=== PATIENT | female | born 1960 | race Caucasian/White ===

== ENCOUNTER 2016-12-06 08:35 | Day surgery (SDC) | payer OTHER ==
[~2016-12-06] VITALS: Ht 175.3 cm; Wt 118.4 kg
[~2016-12-06 08:35] MED LIST: ASPIR-LOW81 MG PO; LISINOPRIL-HCT1 EACH PO; LOVASTATIN20 MG PO; METFORMIN HCL500 MG PO; NICOTINE LOZENGE4 MG BUCCAL; VITAMIN B-121000 MCG PO
[2016-12-06] MEDS ORDERED: AMOXICILLIN500 MG PO (08:50)
--- NOTE | 2016-12-06 10:15 | NUR ---
12[facility]06/16 1014 [facility].
--- NOTE | 2016-12-07 14:14 | OR ---
[facility] [address], [place] [address] Signed DATE OF PROCEDURE: 12/06/16 PREOPERATIVE DIAGNOSIS: Screening. POSTOPERATIVE DIAGNOSIS 5 mm polyp at 45 cm. A 4 mm polyps x3 at 10-12 cm. Minimal internal hemorrhoids. PROCEDURE: Colonoscopy without biopsy. ESTIMATED BLOOD LOSS: None. INDICATIONS Otf is a 56-year-old obese female, who was asked to see me for a screening colonoscopy. She has no lower GI complaints and she has no knowledge of her family history since she was adopted. She has never had a previous colonoscopy. In the office, I gave Otf a pamphlet on colonoscopy and we reviewed the nature of the test along with the risks including, but not limited to gas bloating, crampy, abdominal pain, bleeding perforation requiring surgery, and missed diagnosis. We also discussed the need for IV conscious sedation. She had expressed understanding wished to proceed. PROCEDURE NOTE Otf was taken into our endoscopy suite and placed in the left lateral decubitus position. She was given IV sedation with 8 mg of Versed and 150 mcg of Fentanyl. A digital rectal exam was performed and this was unremarkable. The adult colonoscope was introduced and advanced under direct visualization of camera without difficulty. Her prep was good. There was a couple areas of liquid particulate stool matter we could not quite irrigated and suctioned out completely. The scope was slowly withdrawn. We saw a sessile polyp at 45 cm, which we removed with a hot biopsy forceps. We saw just a cluster of polyps in the mid rectum. We removed those with a hot biopsy forceps as well. Upon retroflexion of scope, she does have minimal internal hemorrhoids. After this, the gas was suctioned out and the colonoscope removed. Otf tolerated the procedure quite well. RECOMMENDATIONS I will see Otf back in my office in 7-14 days to review her colonoscopy results. Also, she has a ventral incisional hernia and a CT scan that needs to be reviewed. Electronically Signed By: SEVERIANO WARD MD 12/07/16 1414 PATIENT NAME: OTF CORONA OPERATIVE REPORT DATE OF : 64 PHYSICIAN: SEVERIANO WARD MD REPORT #: [id number] REPORT IS CONFIDENTIAL AND NOT TO BE RELEASED WITHOUT AUTHORIZATION [address], [place] [address] Signed MD VIOLA Casanova/Modl /[id number] cc: Dr. Yariel Stahl Electronically Signed By: SEVERIANO WARD MD 12/07/16 1414 PATIENT NAME: OTF CORONA OPERATIVE REPORT DATE OF : 64 PHYSICIAN: SEVERIANO WARD MD REPORT #: [id number] REPORT IS CONFIDENTIAL AND NOT TO BE RELEASED WITHOUT AUTHORIZATION
== END 2016-12-06 10:37 | disposition home or self-care (01) ==
LOC: DS 08:35 → OPS 08:35 → DS 09:45 → OPS 09:45
PROVIDERS: Colon & Rectal Surgery
PROC: 0DBE8ZX Excision of Large Intestine, Via Natural or Artificial Opening Endoscopic, Diagnostic (ICD-10-PCS; 2016-12-06)
PROC: 0DBP8ZX Excision of Rectum, Via Natural or Artificial Opening Endoscopic, Diagnostic (ICD-10-PCS; principal; 2016-12-06 09:45)
DX: Z12.11 Encounter for screening for malignant neoplasm of colon (principal); K62.1 Rectal polyp; K63.5 Polyp of colon; K64.8 Other hemorrhoids; I10 Essential (primary) hypertension; E78.5 Hyperlipidemia, unspecified; E11.9 Type 2 diabetes mellitus without complications; Z86.73 Personal history of transient ischemic attack (TIA), and cerebral infarction without residual deficits; F17.210 Nicotine dependence, cigarettes, uncomplicated; Z98.41 Cataract extraction status, right eye; Z98.42 Cataract extraction status, left eye; Z90.710 Acquired absence of both cervix and uterus; Z98.51 Tubal ligation status; Z79.899 Other long term (current) drug therapy
CPT/HCPCS: 99152; 99153; J2250; J3010; J7120

== ENCOUNTER 2016-12-26 14:09 | Observation (INO) | payer OTHER ==
[~2016-12-26] VITALS: Ht 175.3 cm; Wt 117.9 kg
--- OUTSIDE RECORDS SUMMARY | ~2016-12-26 | XMS ---
Demographics + + + | Address | [address] | | | [place] [address] | + + + | Preferred Language | Unknown | + + + | Marital Status | Unknown | + + + | Hinduism Affiliation | Unknown | + + + | Race | Unknown | + + + | Ethnic Group | Unknown | + + + Author + + + | Author | [facility] | + + + | Organization | [facility] | + + + | Address | [address] | | | [place] [address] | + + + | Phone | | + + + Care Team Providers + + + + | Care Physical Therapy Supervisor Name | Role | Phone | + + + + Unavailable | Unavailable | + + + + PROBLEMS +---------+ + + +--------+ + + | Type | Condition | ICD9-CM | [id number] | Onset | Condition | SNOMED | | | | Code | Code | Dates | Status | Code | +---------+ + + +--------+ + + | Problem | Screening | | Z12.11 | | Active | 296746215 | | | for colon | | | | | | | | cancer | | | | | | +---------+ + + +--------+ + + | Problem | Tobacco | F17.200 | | | Active | 83001102 | | | dependence | | | | | | +---------+ + + +--------+ + + | Problem | Screening | Z12.39 | | | Active | 60595965 | | | breast | | | | | | | | examinatio | | | | | | | | n | | | | | | +---------+ + + +--------+ + + | Problem | Sleep | G47.30 | | | Active | 87936983 | | | apnea | | | | | | +---------+ + + +--------+ + + | Problem | History of | Z86.73 | | | Active | 250674663 | | | stroke | | | | | | +---------+ + + +--------+ + + | Problem | Hyperlipid | | E78.5 | | Active | 21281835 | | | emia | | | | | | +---------+ + + +--------+ + + | Problem | Vitamin | E53.8 | | | Active | 351344624 | | | B12 | | | | | | | | deficiency | | | | | | +---------+ + + +--------+ + + | Problem | Essential | | I10 | | Active | 81137719 | | | hypertensi | | | | | | | | on | | | | | | +---------+ + + +--------+ + + | Problem | Type 2 | E11.9 | | | Active | 90330798 | | | diabetes | | | | | | | | mellitus | | | | | | +---------+ + + +--------+ + + | Problem | Carotid | | I77.9 | | Active | 858320841 | | | artery | | | | | | | | disease | | | | | | +---------+ + + +--------+ + + | Problem | Encounter | | Z13.21 | | Active | 366388543 | | | for | | | | | | | | screening | | | | | | | | for | | | | | | | | nutritiona | | | | | | | | l disorder | | | | | | +---------+ + + +--------+ + + | Problem | Tinea | B35.3 | | | Active | 3010376 | | | pedis of | | | | | | | | both feet | | | | | | +---------+ + + +--------+ + + | Problem | Screening | Z13.29 | | | Active | 350291464 | | | for | | | | | | | | hypothyroi | | | | | | | | dism | | | | | | +---------+ + + +--------+ + + | Problem | Women's | Z01.419 | | | Active | 7715329929 | | | annual | | | | | 50081 | | | routine | | | | | | | | gynecologi | | | | | | | | singh | | | | | | | | examinatio | | | | | | | | n | | | | | | +---------+ + + +--------+ + + | Problem | Screening | Z13.5 | | | Active | | | | for | | | | | | | | diabetic | | | | | | | | retinopath | | | | | | | | y | | | | | | +---------+ + + +--------+ + + ALLERGIES Unknown Allergies SOCIAL HISTORY No smoking Hx information available PLAN OF CARE VITAL SIGNS MEDICATIONS Unknown Medications RESULTS No Results PROCEDURES No Known procedures IMMUNIZATIONS No Known Immunizations"
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
--- OUTSIDE RECORDS SUMMARY | ~2016-12-26 | XMS ---
Demographics + + + | Address | [address] | | | [place] [address] | + + + | Preferred Language | Unknown | + + + | Marital Status | Unknown | + + + | Judaism Affiliation | Unknown | + + + | Race | Unknown | + + + | Ethnic Group | Unknown | + + + Author + + + | Author | [facility] | + + + | Organization | [facility] | + + + | Address | [address] | | | [place] [address] | + + + | Phone | | + + + Care Team Providers + + + + | Care Tongue Trimmer Name | Role | Phone | + + + + Unavailable | Unavailable | + + + + PROBLEMS +---------+ + + +--------+ + + | Type | Condition | ICD9-CM | [id number] | Onset | Condition | SNOMED | | | | Code | Code | Dates | Status | Code | +---------+ + + +--------+ + + | Problem | Screening | | Z12.11 | | Active | [id number] | | | for colon | | | | | | | | cancer | | | | | | +---------+ + + +--------+ + + | Problem | Tobacco | F17.200 | | | Active | 63197224 | | | dependence | | | | | | +---------+ + + +--------+ + + | Problem | Screening | Z12.39 | | | Active | 60711356 | | | breast | | | | | | | | examinatio | | | | | | | | n | | | | | | +---------+ + + +--------+ + + | Problem | Sleep | G47.30 | | | Active | 47135845 | | | apnea | | | | | | +---------+ + + +--------+ + + | Problem | History of | Z86.73 | | | Active | 926383280 | | | stroke | | | | | | +---------+ + + +--------+ + + | Problem | Hyperlipid | | E78.5 | | Active | 05655867 | | | emia | | | | | | +---------+ + + +--------+ + + | Problem | Vitamin | E53.8 | | | Active | 243753938 | | | B12 | | | | | | | | deficiency | | | | | | +---------+ + + +--------+ + + | Problem | Essential | | I10 | | Active | 70194286 | | | hypertensi | | | | | | | | on | | | | | | +---------+ + + +--------+ + + | Problem | Type 2 | E11.9 | | | Active | 69996097 | | | diabetes | | | | | | | | mellitus | | | | | | +---------+ + + +--------+ + + | Problem | Carotid | | I77.9 | | Active | 538111709 | | | artery | | | | | | | | disease | | | | | | +---------+ + + +--------+ + + | Problem | Encounter | | Z13.21 | | Active | 733491145 | | | for | | | [...] | B35.3 | | | Active | 6016602 | | | pedis of | | | | | | | | both feet | | | | | | +---------+ + + +--------+ + + | Problem | Screening | Z13.29 | | | Active | 849576113 | | | for | | | | | | | | hypothyroi | | | | | | | | dism | | | | | | +---------+ + + +--------+ + + | Problem | Women's | Z01.419 | | | Active | | | | annual | | | | | | | | routine | | | [...] +---------+ + + +--------+ + + ALLERGIES + + + + +---------+ | Substance | Reaction | Event Type | Date | Status | + + + + +---------+ | Zoe | Unknown | Non Drug | Sep, | Unknown | | | | Allergy | | | + + + + +---------+ SOCIAL HISTORY No smoking Hx information available PLAN OF CARE + +---------+ | Activity | Details | + +---------+ +---+ | | +---+ + + + | Follow Up | December of 2016 Reason:null | + + + VITAL SIGNS + + + + | Height | 68 in | 2016-09-10 | + + + + | Weight | 249.8 lbs | 2016-09-10 | + + + + | BMI | 37.98 kg/m2 | 2016-09-10 | + + + + | Temperature | 97.9 degrees Fahrenheit | 2016-09-10 | + + + + | Heart Rate | 91 /min | 2016-09-10 | + + + + | Blood pressure systolic | 118 mm Hg | 2016-09-10 | + + + + | Blood pressure diastolic | 77 mm Hg | 2016-09-10 | + + + + MEDICATIONS + [...] | Orally | 1 tablet | | 19 Jun, | | | Active | | atin | Once a | | | 2016 | | | | | Calcium | [...] | | | | Active | | [place] | Once a | | | | [...] + + +--------+ RESULTS No Results PROCEDURES + + + + + | Procedure | Date Ordered | Related Diagnosis | Body Site | + + + + + | Est Level IV | September 10, 2016 | | | | Extended | | | | + + + + + IMMUNIZATIONS No Known Immunizations"
[~2016-12-26 14:09] MED LIST changes: +AMOXICILLIN500 MG PO
[2017-01-10] MEDS ORDERED: LIPITOR40 MG PO (09:05)
[2017-01-10] MEDS ORDERED: METFORMIN HCL1000 MG PO (09:05)
[2017-01-20] MEDS ORDERED: CHANTIX0.5 MG PO (07:15)
--- NOTE | 2017-01-20 10:34 | NUR ---
01/20/17 Portia4 Pilar [place] 1028-PATIENT ARRIVED TO PACU ON 6L MASK O2 SAT 98% PATIENT AWAKE DENIES PAIN OR NAUSEA. DRESSING CDI ABDOMINAL BINDER IN PLACE ALONG WITH KING CATHETER.
--- NOTE | 2017-01-20 14:35 | NUR ---
PT SEEMED RELAXED, HAS HAD THIS SURGERY BEFORE. VERY PLEASANT, REQUESTED PRAYER. WILL FOLLOW NEEDED
--- NOTE | 2017-01-20 17:38 | NUR ---
PT ARRIVED AT 1130 FROM SURGERY. PT REPORTED NO PAIN, NO NAUSEA AT THAT TIME. PT ON 3L O2 VIA NC WHILE SLEEPING, WEANED TO ROOM AIR. HOME CPAP WHILE SLEEPING. ABD BINDER IN PLACE, SURGICAL WOUND COVERED WITH ABD PADS AND TAPE. SCANT AMT OF SHADOWING ON ABD PAD. PT REPORTED 2 EPISODES OF SEVERE "CRAMPY" PAIN IN UPPER RIGHT QUADRENT. PT REPORTS PASSED IN 2-5 MINUTES, PRN PAIN MEDS FOR GENERAL PAIN. ONE EPISODE OF TRANSIENT NAUSEA, DECLINED PRN MEDS. KING IN PLACE, DRAINING WELL. SCD IN PLACE.
--- NOTE | 2017-01-20 19:30 | NUR ---
RECIEVED REPORT FROM DAY SHIFT NURSE. PT SLEEPING EVIDENCE BY SNORING. IVF INFUSING W/O DIFFICULTY. CALL VAZQUEZ IN REACH.
--- NOTE | 2017-01-20 20:35 | NUR ---
PT RESTING IN BED. EDUCATED PT ON USE OF IS. PT DEMONSTRATED. CONT. PULSE OX IN PLACE. PT AT 93% RA. MINIMAL SHADOWING NOTED ON ABD PAD. BINDER IN PLACE. SCDS IN PLACE. PT DENIES NEEDS. CALL VAZQUEZ IN REACH.
--- NOTE | 2017-01-20 21:41 | NUR ---
ROUNDED CHARGE. PATIENT IS RESTING IN BED. PATIENT DENIES ANY COMMENTS, QUESTIONS, OR CONCERNS.
--- NOTE | 2017-01-20 22:26 | NUR ---
PT RESTING IN BED. STATES SHE STILL HAS NOT GOTTEN UP SINCE SURGERY. ATTEMPTED TO SIT PATIENT ON SIDE OF BED. PT STATES SHE IS IN TOO MUCH PAIN. HER PAIN HAS BEEN INTERMITTENT CRAMPING THAT IS SEVERE WHEN IT STARTS. ADMINISTERED 1 TAB NORCO. BS HYPOACTIVE. SMALL AMOUNT OF SHADOWING ON DRESSING. LUNGS CLEAR. TRACE EDEMA BLE. PT DENIES FURTHER NEEDS. CALL VAZQUEZ IN REACH.
--- NOTE | 2017-01-21 00:05 | NUR ---
PT SLEEPING. CALL VAZQUEZ IN REACH.
--- NOTE | 2017-01-21 00:45 | NUR ---
PT RESTING IN BED. O2 AT 88% WHILE SLEEPING. PT REFUSING CPAP AT THIS TIME. APPLIED 1L O2 VIA NC. PT C/O SHARP CRAMPING PAIN 12/13. CRAMPING MOSTLY COMES WITH MOVEMENT. ADMINISTERED NORCO. PT REFUSING TO AMBULATE AT THIS TIME. PT STILL ONLY TAKING IN CLEAR LIQUIDS. C/O "HEARTBURN." SHE DID NOT WANT ME TO CALL THE DOCTOR SO I OFFERED MILK WHICH PT SAYS SHE DRINKS AT HOME TO HELP WITH HEARTBURN. AFTER I ADMINISTERED THE NORCO, PT STATES SHE HAS BEEN FEELING NAUSEOUS AFTER ADMINISTRATION. I GAVE HER AN EMESIS BAG AND TOLD HER TO CALL IF SHE STARTS TO FEEL NAUSEATED. WILL SWITCH TO DILAUDID UNTIL PT ABLE TO EAT FOOD. WATER PITCHER FILLED. SCDS IN PLACE. PT DENIES FURTHER NEEDS.
--- NOTE | 2017-01-21 02:25 | NUR ---
PT'S URINARY OUTPUT HAS BEEN 250CC ALL SHIFT. NOTIFIED MD. OBTAINED ORDER. ATTEMPTED TO STAND PT. PT STARTED CRYING IN PAIN. ADMINISTERED DILAUDID. PT NOW REFUSES TO STAND. PT DENIES FURTHER NEEDS.
--- NOTE | 2017-01-21 04:27 | NUR ---
PT SLEEPING. CALL VAZQUEZ IN REACH.
--- NOTE | 2017-01-21 04:38 | NUR ---
PT SLEEPING. NC IN PLACE. CONT. PULSE OX IN PLACE. CALL VAZQUEZ IN REACH.
--- NOTE | 2017-01-21 06:00 | NUR ---
GEAR AND SPLINE GRINDER OBTAINED VS. BP LOW. NOTIFIED MD. OBTAINED ORDER TO HOLD BP MEDS THIS MORNING.
--- NOTE | 2017-01-21 06:50 | NUR ---
PT RESTING IN BED. EDUCATED HER ON THE IMPORTANCE OF AMBULATING AND SITTING UP STRAIGHT AFTER SURGERY. BASILAR CRACKLES AUSUCLTATED. PT ABLE TO STAND AND PIVOT WITH 2 ASSIST TO CHAIR. PT STATES SHE FEELS VERY WEAK. PT APPEARS TO BE EXTREMELY ANXIOUS BECUASE SHE DOES NOT WANT TO BE IN PAIN. WILL GIVE HIGHER DOSE OF DILAUDID NEXT TIME SHE GETS UP. PT USING INCENTIVE SPIROMETER, ABLE TO REACH 1000ML. HYDRATION OFFERED. CALL VAZQUEZ IN REACH.
--- NOTE | 2017-01-21 07:41 | NUR ---
RECIEVED BEDSIDE REPORT FROM YONAS ARRIOLA. PT AWAKE AND UP IN CHAIR. O2 SAT IN HIGH 80'S, REPLACED O2 AT 2L. PT REPORTS MINOR PAIN.
--- NOTE | 2017-01-21 08:56 | OR ---
[facility] [address], [place] [address] Signed DATE OF OPERATION: 01/20/2017 SURGEON: Severiano Ward MD PREOPERATIVE DIAGNOSIS: Incarcerated periumbilical ventral hernias x2. POSTOPERATIVE DIAGNOSIS: Incarcerated periumbilical ventral hernias x4 (15 cm). PROCEDURE: Primary ventral herniorrhaphy with intraabdominal Ventrio mesh (15.5 x 25.7 cm). ESTIMATED BLOOD LOSS: None. INDICATIONS: Otf is a 56-year-old obese diabetic female who underwent a full hysterectomy in 2013 over in [facility] in [place] for a large uterine fibroid tumor. We can see that her incision traveled several centimeters above the umbilicus. 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 Has to live suitcase in wheelchairs and so forth. She has noticed painful bulging above and below her umbilicus. She said the pain was starting to limit her ability to work. When she lies down, she is not sure if she can push the hernias back inside. She said the pain is at least a 5/10 and often more when she is lifting. She had been asked by her primary care provider to see me with respect to the above. We could feel the incarcerated material on both of those hernias. We sent Otf for a CT scan of the abdomen and pelvis. We found that indeed she has 2 very large hernias and it looks like 2 additional smaller hernias in the midline above the umbilicus. In the office, I had given Otf a booklet on hernias and we looked at that together in detail. We discussed her ventral hernia along with a difference between the primary suture repair and a mesh repair. She understands the expected intraop and postop course. There is risk of surgery including, but not limited to bleeding, infection, scarring, change in contour of the skin, damage to bowel, infection of mesh, requiring removal, recurrent hernias and chronic pain. She had expressed understanding and wished to proceed. PROCEDURE NOTE: I have met with Otf in our preop area. We identified the 2 larger hernias easily, we marked that appropriately. After this Otf was taken into the operating room and placed in the supine position under general endotracheal tube anesthesia. She was given preoperative antibiotics along with subcutaneous heparin. SCDs were utilized. Rincon catheter was inserted with return of clear yellow urine. She was then prepped and draped in the usual sterile fashion. We utilized her previous midline periumbilical incision and we carried that down through the tissues with the help of the cautery. We localized Electronically Signed By: SEVERIANO WARD MD 01/21/17 0856 PATIENT NAME: OTF CORONA OPERATIVE REPORT DATE OF : 64 PHYSICIAN: SEVERIANO WARD MD REPORT #: [id number] REPORT IS CONFIDENTIAL AND NOT TO BE RELEASED WITHOUT AUTHORIZATION [address] [address] Signed the 2 larger hernias first. We excised the hernia sac completely all the way back to the fascial edges. We found 2 additional hernias in the epigastric area and they were smaller just over a centimeter each. The hernia sac for each of the smaller hernias was excised and passed off the field. Given the Panamanian cheese nature of her hernias, then we divided the bridges between the hernias in the full length of that fascial defect then was 15 cm. That gave us excellent access to the abdomen and we took down all the omental adhesions to the anterior abdominal wall. We had a rent down the center of the omentum, so we closed that with a running 2-0 PDS suture. After this, we irrigated out the abdomen and the wound until completely clear. We chose our 15.5 x 25.7 cm Ventrio mesh. We placed that into the abdomen with the long axis directly underneath the center of the fascial defect. We then carefully closed the fascia together in the midline with interrupted #1 Prolene [id number] sutures. In between these, we used smaller 0 Prolene sutures to help bring some of the areas together as well. This gave excellent coverage of her hernia and no undue buckling of the mesh as we passed several sutures through the top layer of the mesh to help hold it in place. On this occasion, we did not use tacks around the perimeter of the mesh. After this, the wound was irrigated out once again. We injected local anesthetic into her abdominal wall. We then closed the dermis with interrupted 3-0 Monocryl sutures. The skin edges were then reapproximated with blaine. Dry gauze and tape were then applied. An abdominal binder was then put in place. Otf was then awakened from anesthesia, extubated in the OR, taken to recovery room in stable condition. Severiano Ward MD ALB/MODL /[id number] cc: Yariel Stahl MD Electronically Signed By: SEVERIANO WARD MD 01/21/17 0856 PATIENT NAME: OTF CORONA OPERATIVE REPORT DATE OF : 64 PHYSICIAN: SEVERIANO WARD MD REPORT #: [id number] REPORT IS CONFIDENTIAL AND NOT TO BE RELEASED WITHOUT AUTHORIZATION [address] [address] Signed Severiano Ward MD Electronically Signed By: SEVERIANO WARD MD 01/21/17 0856 PATIENT NAME: OTF CORONA OPERATIVE REPORT DATE OF : 64 PHYSICIAN: SEVERIANO WARD MD REPORT #: [id number] REPORT IS CONFIDENTIAL AND NOT TO BE RELEASED WITHOUT AUTHORIZATION
--- NOTE | 2017-01-21 10:15 | NUR ---
PT IS STILL UP IN CHAIR, APPEARS COMFORTABLE. IV RUNNING, IV MAG RIDER RUNNING, WILL RUN FLAGYL ONCE COMPLETE. KING DRAINING CLEAR URINE. PT REPORTS PAIN WITH MOVEMENT.
--- NOTE | 2017-01-21 14:06 | NUR ---
PT RESTING IN CHAIR. DENIES PAIN AT THIS TIME. PT STATES SHE IS COMFORTABLE. DOES NOT WANT TO GET INTO BED. PT TOLERATING CLEAR LIQUID WELL.
--- NOTE | 2017-01-21 18:28 | NUR ---
PT SAT IN CHAIR ALL SHIFT. WHEN ASKED ABOUT REPOSITIONING, PT DECLINED. 1MG IV DILAUDID X1. PT HAD O2 AT 1L WHILE SLEEPING IN CHAIR. PT ANXIOUS ABOUT MOVING. BOWEL TONES HYPOACTIVE, ENCOURAGED AMBULATION.
--- NOTE | 2017-01-21 19:25 | NUR ---
RECIEVED REPORT FROM DAY SHIFT NURSE. PT SLEEPING IN CHAIR. IVF INFUSING W/O DIFFICULTY. 1L NC IN PLACE. O2 SAT AT 92%. CALL LIGHT IN REACH.
--- NOTE | 2017-01-21 20:45 | NUR ---
PT RESTING IN CHAIR. C/O BACK PAIN. STATES HER ABD FEELS "OKAY" BUT IT IS PAINFUL WITH MOVEMENT. PLANNING ON PT TRANSFERRING TO BED. PT STATES SHE HAS NOT WALKED TODAY AND HAS BEEN UP IN THE CHAIR ALL DAY. PREMEDICATING WITH 1MG DILAUDID. CALL VAZQUEZ IN REACH.
--- NOTE | 2017-01-21 21:20 | NUR ---
ATTEMPTED TO ASSIST PT TO AN UPRIGHT POSITION IN THE CHAIR IN ORDER TO STAND. PT UNABLE DUE TO PAIN. ADMINISTERED 1 MG OF DILAUDID.
--- NOTE | 2017-01-21 21:45 | NUR ---
PT WAS ABLE TO DO A STAND AND SHUFFLE A FEW STEPS TO BED WITH 2 ASSISTS. PT NOW RESTING IN BED. SCDS IN PLACE. 2 L O2 VIA NC IN PLACE. CONT PULSE OX AT 92%. PT STATES SHES COMFORTABLE. IVF INFUSING W/O DIFFICULTY. PT DENIES FURTHER NEEDS. MEAL TRAY REMOVED WHICH WAS UNTOUCHED.
--- NOTE | 2017-01-21 23:31 | NUR ---
PT SLEEPING. NC IN PLACE AT 2L. CONT. PULSE OX READING 92%. CALL VAZQUEZ IN REACH. IVF INFUSING W/O DIFFICULTY.
--- NOTE | 2017-01-22 00:54 | NUR ---
PT'S O2 AT 89% ON 2L WHILE SLEEPING. APPLIED CPAP MACHINE. PT DENIES NEEDS AT THIS TIME. IVF INFUSING W/O DIFFICULTY. CALL VAZQUEZ IN REACH.
--- NOTE | 2017-01-22 01:27 | NUR ---
PT STATES SHE CAN NO LONGER TOLERATE CPAP. SHE DOES WEAR IT AT HOME BUT SHE STATES SHE HAS GOT "TOO MUCH GOING ON." REPLACED WITH NC. ENCOURAGED PT TO COUGH AND DEEP BREATHE. PT ABLE TO BRING UP SECRETIONS BUT SHE SWALLOWED THEM. PT NOW ON 3L VIA NC, SAT AT 90% WHILE SLEEPING.
--- NOTE | 2017-01-22 03:30 | NUR ---
PT SLEEPING. NC IN PLACE. CALL LIGHT IN REACH.
--- NOTE | 2017-01-22 05:27 | NUR ---
PT CALLED NURSE IN TO ATTEMPT TO SIT ON EDGE OF BED. PT GOT ABOUT HALF WAY THERE AND DECIDED SHE NO LONGER WANTED TO TRY. PT AGREES TO SIT UP IN THE CHAIR THIS MORNING. WILL PREMEDICATE WITH PAIN MEDICATION. SCDS REMOVED PER PT'S REQUEST. CALL VAZQUEZ IN REACH.
--- NOTE | 2017-01-22 06:07 | NUR ---
PREMEDICATED PT WITH DILAUDID BEFORE SHE TRANSFERS TO CHAIR. BLOOD SUGAR OBTAINED. CALL VAZQUEZ IN REACH.
--- NOTE | 2017-01-22 06:30 | NUR ---
TRANSFERRED PT FROM BED TO CHAIR WITH 2 ASSIST. PT DID A LITTLE BETTER THAN YESTERDAY TRANSFERRING. SHE WAS ABLE TO TAKE ABOUT 5 STEPS TO CHAIR. PT UP IN CHAIR, ENCOURAGED USE OF INCENTIVE SPIROMETER. STATES PAIN AT AN ACCEPTABLE LEVEL. CALL VAZQUEZ IN REACH.
--- NOTE | 2017-01-22 07:30 | NUR ---
PATIENT SITTING UP IN CHAIR. ZEINAB ASSISTED PATIENT TO CHAIR AT 0630. PATIENT TOLERATED AFTER PREMEDICATION OF DILAUDID. PATIENT CURRENTLY STATING THAT SHE IS COMFORTABLE. CURRENTLY ON 3 L VIA NC. PLAN OF CARE DISCUSSED WITH PATIENT.
--- NOTE | 2017-01-22 07:46 | NUR ---
BED CHANGE DONE. PATIENT SITTING UP IN CHAIR. PATIENT LUNGS CLEAR IN UPPER LOBES. CRACKLES ASCULTATED IN L LOWER LOBE. PATIENT ASKED TO COUGH AND DEEP BREATH. LUNG SOUNDS CLEARED. RT IN ROOM TO ASSISTED WITH IS. PATIENTS BT HYPOACTIVE. PATIENT REPORTS " ALMOST BEING ABLE TO PASS GAS". ENCOURAGED PATIENT TO EAT CLEAR LIQUID DIET. INFORMED PATIENT THAT I WOULD LIKE HER TO AMBULATE MORE TODAY. PATIENT AGREED TO AMBULATE IN ROOM AFTER MEAL.
--- NOTE | 2017-01-22 07:52 | NUR ---
PATIENT IN CHAIR, DOING WELL. REMINDED PATIENT TO CALL IF SHE NEEDS ANYTHING AT ALL. WHITEBOARD UPDATED, ROOM TIDIED.
--- NOTE | 2017-01-22 08:50 | NUR ---
2 MG DILAUDID GIVEN FOR ANTICIPATION OF AMBULATING IN [place]. PATIENT STATING PAIN MINIMAL UNLESS MOVING.
--- NOTE | 2017-01-22 09:39 | NUR ---
PATIENT AMBULATED TO [place]. NEEDING TWO PERSON ASSIST TO [place]. PATIENT TOUCHED THE HALLWAY WALL THEN ASSISTED BACK TO BED. PATIENT NEEDED 2 PERSON ASSISTANCE. PATIENT NEEDING A LOT OF ENCOURAGMENT TO AMBULATE AND PARTICIPATE WITH ACTIVITY. PATIENT PLACED ON RA FOR ACTIVITY. PATIENT DESATED TO 80'S.ONCE PLACED ON OXYGEN PATIENT SATS WENT TO 90 PERCENT WITH ENCOURAGMENT OF COUGING AND DEEP BREATHING. CONTINUE TO HAVE OXYGEN AT 2L PER NC. PATIENT REFUSED AT THIS TIME TO WEAR HOME CPAP WHILE RESTING IN BED. PATIENT DOING IS AT THIS TIME.
--- NOTE | 2017-01-22 10:20 | NUR ---
PATIENT RESTING IN BED. DR. WARD HAD BEEN IN ROOM. D/C'D DRESSING ABD BINDER IN PLACE. SMALL AMOUNT OF DRAINAGE FROM INCISION. PLACED ABD. ABD INCISION IS WELL APPROXIMATED WITH NO REDDNESS. KING D/C AT THIS TIME. ADVANCED DIET TO FULL LIQUID.
--- NOTE | 2017-01-22 11:26 | NUR ---
PATIENT LAYING IN BED. PATIENT STATING NO NEEDS AT THIS TIME. AGREED TO AMBULATE TO CHAIR AT 1200 FOR LUNCH.
--- NOTE | 2017-01-22 11:56 | NUR ---
PATIENT ASSISTED TO HER CHAIR. TWO PERSON ASSIST TO CHAIR. NEEDING ENCOURAGMENT TO DO MORE ON HER OWN. PATIENT REMAINS ON 2 L PER NC. SATING 90-92 PERCENT ON THE 2 L. PATIENT STATING PAIN OKAY AT THIS TIME. WILL CONTINUE TO MONITOR. CALL LIGHT WITHIN REACH.
--- NOTE | 2017-01-22 12:42 | NUR ---
PATIENT DOING WELL. NURSE IN ROOM
--- NOTE | 2017-01-22 13:12 | NUR ---
assisted patient from chair to br. patient voided. had trouble getting up from chair needing two assist. assisted to bed. patient stating she could use some pain medication. patient stating she would like one tap norco. current rating pain 1/10 with no movement. increased with activity.
--- NOTE | 2017-01-22 15:48 | NUR ---
NURSE IN ROOM
--- NOTE | 2017-01-22 16:00 | NUR ---
patient assisted to the br. patient tolerating ambulating to the br with a one assist. bed bath given once in the br. patient refused to take a shower at this time, but did agree to the bed bath. patient tolerated bed bath well. washed entire body with wipes. hair washed. lotion applied to lower legs and arms. tresa care washed. patient then assisted back to bed. pain medication given per request. 1 mg of dilaudid given. evening medication given. patient blood sugar taken.
--- NOTE | 2017-01-22 17:07 | NUR ---
patient had a good day today. estrada was removed. patient has been voiding well. iv fluids decreased. patient has been tolerating a full liquid diet. getting out of bed with assitance for all meals and to the br. patient given bedbath today. norco given for pain x 1. dilaudid was given x2. patient has abd midline incision open to air. abd inbetween stables and abd binder. incision is well approximated and no reddness present. small amount of bleeding from stables present. active bm. patinet has had no flatus. burping at this time. ambulated in jean x 1
--- NOTE | 2017-01-22 18:00 | NUR ---
PATIENT ASSISTED TO THE BR. TOLERATED 100 PERCENT OF DINNER. PATIENT AMBULATED INTO THE [place] TO THE NURSING STATION AND THEN AMBULATED BACK TO BED. REMAINS ON 2 L PER NC. TWO TABS OF NORCO GIVEN.
--- NOTE | 2017-01-22 18:30 | NUR ---
PATIENT CALLED FOR SOMETHING BEEPING. PLUGGED IN HER IV PUMP THE BATTERY WAS LOW. TURNED OFF THE LIGHTS WELL. PATIENT DID NOT NEED ANYTHING ELSE AT THIS TIME.
--- NOTE | 2017-01-22 19:15 | NUR ---
RECIEVED REPORT FROM SHAE BRANHAM. PT RESTING IN BED. STATES SHE HAD A GREAT DAY. PT PASSING GAS. PT ON 2L O2 VIA NC. PT STATES SHE DOES NOT WANT TO WEAR HER CPAP TONIGHT BECAUSE IT MAKES HER FEEL "CLAUSTROPHOBIC." NO C/O PAIN OR N/V. PT DENIES NEEDS AT THIS TIME. CALL LIGHT IN REACH.
--- NOTE | 2017-01-22 20:00 | NUR ---
PT RESTING IN BED. 2L O2 VIA NC IN PLACE. PT'S O2 ABOUT 92%. CONT PULSE OX IN PLACE. PT'S BS HYPOACTIVE, TYMPANIC SOUNDING IN LUQ. PT DENIES PAIN AT REST. PT REQUESTING TO USE THE BATHROOM. MINIMAL ASSIST REQUIRED WITH AMBULATION. PT VODIED 100CC CLEAR YELLOW URINE. PT BACK TO BED. STATES HER PAIN WAS ABOUT 5/10 WITH AMBULATION. MIDLINE INCISION WNL, NO S/S OF INFECTION. BINDER IN PLACE WITH ABD OVER DAINA. LUNG SOUNDS CLEAR/DIM. ENCOURAGED USE OF INCENTIVE SPIROMETER. PT ABLE TO REACH 1000ML. WATER PITCHER FILLED. PT REQUESTING FOR MILK FOR HEARTBURN, STATES IT HAS BEEN HELPING. PT DENIES FURTHER NEEDS. CALL VAZQUEZ IN REACH.
--- NOTE | 2017-01-22 22:00 | NUR ---
PT REQUESTS TO USE BATHROOM. PT ABLE TO GET OUT OF BED INDEPENDENTLY. VOIDED 300CC, BACK TO BED. PT C/O PAIN WITH MOVEMENT. ADMINISTERED 1 TAB NORCO. PT DENIES FURTHER NEEDS. STILL REFUSING SCDS AT THIS TIME. ENCOURAGED ANKLE PUMPS AND EDUCATED HER ON THE USE OF SCDS AND THE RISK OF BLOOD CLOTS. CALL VAZQUEZ IN REACH.
--- NOTE | 2017-01-22 23:37 | NUR ---
MANAGER ENERGY ASSISTED PT TO THE BATHROOM. PT DENIES NEEDS FROM NURSE. O2 IN PLACE. CALL VAZQUEZ IN REACH.
--- NOTE | 2017-01-23 00:51 | NUR ---
PT SLEEPING EVIDENCE BY SNORING. NC IN PLACE AT 2L, O2 AT 93%, HR IN THE 60S. CALL VAZQUEZ IN REACH.
--- NOTE | 2017-01-23 02:42 | NUR ---
PT SLEEPING EVIDENCE BY SNORING. O2 IN PLACE, SAT AT 85%. INCREASED O2 TO 3L/MIN. SAT BACK UP TO 92%. CALL LIGHT IN REACH.
--- NOTE | 2017-01-23 04:22 | NUR ---
ASSISTED PT TO THE BATHROOM. PT VOIDED AND BACK TO BED. SCDS IN PLACE. PT ON 2L O2 VIA NC AT 93%. PT RATES HER PAIN 3-4/10 WHILE UP WALKING. 1 TAB NORCO ADMINISTERED. I HAD PT EAT A PUDDING BEFORE I ADMINISTERED THE NORCO. LUNGS CLEAR, PT DEMONSTRATED IS, PT ABLE TO REACH 1250ML. HR REG, NO EDEMA, HYPOACTIVE BS. INCISION WELL APPROXIMATED, NO S/S OF INFECTION, NO DRAINAGE. ABD BINDER IN PLACE. PT DID NOT NEED ASSISTANCE GETTING OUT OF BED. PT IS VERY HAPPY WITH HOW FAR SHE HAS PROGRESSED. I TOLD HER THE PLAN FOR THE DAY IS TO AMBULATE IN THE [place] ATLEAST 4 TIMES. PT AGREES. WATER PITCHER FILLED, CALL VAZQUEZ IN REACH.
--- NOTE | 2017-01-23 06:39 | NUR ---
PT UP TO BATHROOM MULTIPLE TIMES DURING THE NIGHT. RATING PAIN 4-5/10 WITH AMBULATION. 1 TAB NORCO PRN PAIN WORKING WELL. PASSED GAS X1 AT START OF SHIFT. HYPO BOWEL SOUNDS. MIDLINE INCISION OPEN TO AIR. PT MAY SHOWER. NO NAUSEA. BP SOFT THIS MORNING. PT ON 2L O2 VIA NC.
--- NOTE | 2017-01-23 06:57 | NUR ---
KARLY BRANHAM AMBULATED PT IN HALLWAY. PT UP IN CHAIR. IVF INFUSING W/O DIFFICULTY. ORDERED PT BREAKFAST. DENIES FURTHER NEEDS. CALL VAZQUEZ IN REACH.
--- NOTE | 2017-01-23 07:42 | NUR ---
BEDSIDE REPORT RECEIVED FROM ZEINAB. PATIENT UP TO CHAIR. REPORT PAIN AT 10. MIDLINE INCISION DRY WITH ALL DAINA IN PLACE. IV SITE PATENT AND FLUID INFUSING WELL. PATIENT DENIES ANY NAUSEA.
--- NOTE | 2017-01-23 08:02 | NUR ---
PATIENT UP TO SHOWER. LINENS CHANGED.
--- NOTE | 2017-01-23 09:55 | NUR ---
PATIENT BACK TO BED. WATCHING TV. CALL BUTTON IN REACH. NO OTHER NEEDS AT THIS TIME.
--- NOTE | 2017-01-23 12:21 | NUR ---
PATIENT WAS UP AND WALKED FROM HER ROOM TO THE NURSES STATION AND BACK. TOLERATED WELL. REPORT NO SOB WHILE AMBULATING. REPORTS MINIMAL PAIN. RESTING IN BED AT THIS TIME EATING LUNCH.
--- NOTE | 2017-01-23 14:21 | NUR ---
PATIENT RESTING IN BED WATCHING TV. FRESH ICE WATER GIVEN. NO OTHER NEEDS AT THIS TIME.
--- NOTE | 2017-01-23 14:57 | NUR ---
PATIENT WAS UP TO BATHROOM TO VOID. WENT FOR WALK AND TOLERATED WELL. PAIN MEDS GIVEN PER PATIENT REQUEST. RESTING IN BED AT THIS TIME.
--- NOTE | 2017-01-23 17:33 | NUR ---
ASSISTED PATIENT TO BATHROOM. BACK TO CHAIR WITH NO DIFFICULTY. DENIES NAUSEA AND PAIN
--- NOTE | 2017-01-23 18:05 | NUR ---
PATIENT SITTING UP IN BED WATCHING TV. CALL BUTTON IN REACH. FRESH ICE WATER GIVEN. NO OTHER NEEDS AT THIS TIME.
--- NOTE | 2017-01-23 18:35 | NUR ---
PATIENT HAD DONE WELL TODAY, HAS BEEN UP AMBULATING IN THE HALLWAY. MIDLINE INCISION WNL, ALL DAINA IN PLACE, NO DRAINAGE. PATIENT REPORTED PASSING FLATUS. HAD SHOWER TODAY. IV SITE PATENT AND FLUID INFUSING AT TKO. MAY DC TOMORROW.
--- NOTE | 2017-01-23 19:15 | NUR ---
RECIEVED REPORT FROM DAY SHIFT NURSE. PT RESTING IN BED. REQESTING TO USE BATHROOM. PT VOIDED. TO CHAIR. REMOVED O2. PT'S O2 AT REST 90-92%. PT DENIES SOB. CONT PULSE OX IN PLACE. WARM BLANKET APPLIED. DENIES FURTHER NEEDS. CALL LIGHT IN REACH.
--- NOTE | 2017-01-23 20:30 | NUR ---
ASSISTED PT TO BATHROOM. PT VOIDED. TO BED. SCDS IN PLACE. NORCO ADMINISTERED FOR PAIN WITH MOVEMENT. BS ACTIVE. REMVOED BINDER PER PT'S REQUEST. INCISION WELL APPROXIMATED, NO S/S OF INFECTION. APPLIED 1L O2-SAT AT 92%. CONT PULSE OX IN PLACE. WILL REASESS O2 LEVEL WHILE PT IS ASLEEP. LUNGS CLEAR IN UPPER LOBES, FINE BASILAR CRACKLES AUSUCLTATED. ENCOURAGED PT TO COUGH AND DEEP BREATH. DEMONSTRATED PROPER USE OF INCENTIVE SPIROMETER. PT DENIES FURTHER NEEDS. CALL VAZQUEZ IN REACH.
--- NOTE | 2017-01-23 22:07 | NUR ---
PT SLEEPING. NC IN PLACE AT 1L. CONT. PULSE OX AT 92%. CALL LIGHT IN REACH.
--- NOTE | 2017-01-23 23:42 | NUR ---
RN ASSISTED PT TO BATHROOM. PT VOIDED AND IS NOW BACK IN BED. SCDS IN PLACE. PT REFUSES TO WEAR CPAP TONIGHT. O2 IN PLACE AT 1L. CONT. PULSE OX IN PLACE. PT'S O2 SAT AT 91%. DENIES NEEDS. CALL LIGHT IN REACH.
--- NOTE | 2017-01-24 01:44 | NUR ---
STANDBY ASSISTED PATIENT TO THE BATHROOM AND BACK TO BED. SCDS AND CONTINUOUS PULSE OXIMETRY ARE BACK ON. CALL LIGHT WITHIN REACH. ICE WATER REFILLED.
--- NOTE | 2017-01-24 01:45 | NUR ---
PT UP TO BATHROOM WITH BROWNING PROCESSOR. RATES HER PAIN 5/10 WITH AMBULATING. 1 TAB NORCO ADMINISTERED. BROWNING PROCESSOR REFILLED WATER PITCHER. 1L O2 VIA NC IN PLACE. PT'S O2 AT 91%, PT ABLE TO REACH 95% WITH DEEP BREATHING. ONCE AGAIN ENCOURAGED INCENTIVE SPIROMETER WHILE AWAKE. CALL VAZQUEZ IN REACH.
--- NOTE | 2017-01-24 03:41 | NUR ---
PT SLEEPING. O2 SAT AT 94% ON 1L. TURNED O2 OFF. WILL REASSESS.
--- NOTE | 2017-01-24 04:09 | NUR ---
PT'S O2 AT 89% SLEEPING ON RA. TURNED O2 BACK ON TO 1L/MIN.
--- NOTE | 2017-01-24 05:30 | NUR ---
PT AMBULATED [place] WITH NURSE. DENIES PAIN. VOIDED. BACK TO BED. PT STATES SHE DID GET A LITTLE SOB. O2 SAT 87% AFTER WALK. 1L O2 APPLIED. PT DENIES FURTHER NEEDS.
--- NOTE | 2017-01-24 07:20 | NUR ---
REPORT RECIEVED FROM YONAS ARRIOLA. PT AWAKE AND STATES PAIN CONTROL IS GOOD RIGHT NOW. UP TO RESTROOM WITH STANDBY ASSIST.
--- NOTE | 2017-01-24 08:40 | NUR ---
RN IN WITH PATIENT. PATIENT REFUSED BATH DUE TO GOING HOME TODAY. GAVE PATIENT WASH CLOTH FOR HANDS AND FACE. CALL BUTTON IN REACH. NO OTHER NEEDS AT THIS TIME.
--- NOTE | 2017-01-24 08:57 | NUR ---
PT UP TO THE RESTROOM UNASSISTED. IS HOPING TO GO HOME TODAY. PAIN IS WELL CONTROLLED. PASSING GAS AND VOIDING WELL.
--- NOTE | 2017-01-24 10:33 | NUR ---
PATIENT RESTING IN BE WATCHING TV. CALL BUTTON IN REACH. NO OTHER NEEDS AT THIS TIME.
[2017-01-24] MEDS ORDERED: NORCO 5-325 TA1 EACH PO (11:14)
--- NOTE | 2017-01-24 11:58 | NUR ---
PT DC'D HOME WITH FAMILY. VS STABLE. DC INSTRUCTIONS GIVEN, PT VERBALIZED UNDERSTANDING. IV REMOVED WNL. PT WHEELED OUT BY STAFF. BELONGINGS RETURNED.
--- NOTE | 2017-01-24 17:07 | DS ---
[facility] [address], [place] [address] Signed ADMISSION DATE: 01/20/2017 DISCHARGE DATE: 01/24/2017 FINAL DIAGNOSIS: Periumbilical ventral incisional hernias x4 (15 cm length). PROCEDURE: Ventral herniorrhaphy with intraabdominal Ventrio mesh (15.5 x 25.7 cm). HISTORY OF PRESENT ILLNESS: Otf is a 56-year-old, obese, diabetic female, who continues to smoke. She had a large uterine fibroid tumor removed through a long periumbilical midline incision. This was done in [place], [place]. Subsequently, she developed a hernia both above and below the umbilicus. 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 It was causing her a lot of pain and she could not always reduced the hernia. She finally went to her primary care provider, who asked me to see her in consultation. HOSPITAL COURSE: Otf had, had a CT scan and we saw the 2 hernias plus probably 2 additional small hernias in epigastric region. We took her to the operating room on 01/20/2017 and sure enough, she had the 4 hernias. The 2 large hernias connected together were 15 cm in length. Consequently, we used 15.5 x 25.7 cm [address]rio mesh to place inside the abdomen and we brought the fascia back together in the midline. Several passes of the suture went through the top layer of that mesh to keep it centered in the abdomen. She has done well both intraop and postop. She is up to her ADA diet and having lots of flatus in the last 2 days. She feels like a bowel movement is close, but she has not quite had a bowel movement. She has been ambulating in the hallway, showering, and doing quite well. At this point, we are going to be discharging her to home. DISCHARGE PLANS AND MEDICATIONS: Otf has not been using the narcotic pain medication. Nevertheless, she wanted me to send her home with [place] 5/325 mg 1 to 2 tablets p.o. q.4-6 hours p.r.n. pain. We will give her 20 tablets with no refills. She can resume her chronic medications. She can continue her diabetic diet at home. She can perform her activities of daily living including walking up and down stairs and showering and bathing as usual. She should not lift anything over 25 pounds. We will leave all her blaine in place. I will have her back in the office in a week or so for followup. She has expressed understanding and agrees with the above plan. Electronically Signed By: SEVERIANO WARD MD 01/24/17 1707 PATIENT NAME: OTF CORONA DISCHARGE SUMMARY DATE OF : 64 PHYSICIAN: SEVERIANO WARD MD REPORT #: [id number] REPORT IS CONFIDENTIAL AND NOT TO BE RELEASED WITHOUT AUTHORIZATION [address] [address] Signed MD KANDICE Jain/ADRY /[id number] cc: Yariel Stahl MD Electronically Signed By: SEVERIANO WARD MD 01/24/17 1707 PATIENT NAME: OTF CORONA DISCHARGE SUMMARY DATE OF : 64 PHYSICIAN: SEVERIANO WARD MD REPORT #: [id number] REPORT IS CONFIDENTIAL AND NOT TO BE RELEASED WITHOUT AUTHORIZATION
== END 2017-01-24 11:50 | disposition home or self-care (01) ==
LOC: MS 01-20 06:55 → DSVR 01-20 06:55 → MS 01-20 06:55 → DS 01-20 08:15 → EDSTATUS 01-20 08:15 → MS 01-20 08:15
PROVIDERS: ADMIT Colon & Rectal Surgery
PROC: 0WUF0JZ Supplement Abdominal Wall with Synthetic Substitute, Open Approach (ICD-10-PCS; principal; 2017-01-20 08:15)
DX: K43.0 Incisional hernia with obstruction, without gangrene (principal); E11.9 Type 2 diabetes mellitus without complications; E66.9 Obesity, unspecified; I10 Essential (primary) hypertension; E78.5 Hyperlipidemia, unspecified; F17.210 Nicotine dependence, cigarettes, uncomplicated; G47.30 Sleep apnea, unspecified; E83.42 Hypomagnesemia; Z86.73 Personal history of transient ischemic attack (TIA), and cerebral infarction without residual deficits; Z79.84 Long term (current) use of oral hypoglycemic drugs; Z79.82 Long term (current) use of aspirin; Z79.899 Other long term (current) drug therapy; Z68.39 Body mass index [BMI] 39.0-39.9, adult
CPT/HCPCS: 00832; 36415; 80048; 83735; 84100; 85025; 94762; 96361; 96365; 96366; 96372; 96375; 96376; C1781; G0378; J0690; J1170; J1644; J1885; J2250; J2405; J2704; J2710; J3010; J3475; J7120

== ENCOUNTER 2021-06-29 04:51 | Emergency (ER) | payer OTHER ==
[~2021-06-29] VITALS: Ht 175.3 cm; Wt 117.0 kg
[~2021-06-29 04:51] MED LIST changes: +CHANTIX0.5 MG PO; +FISH OIL 1,0001 EAC2 NG; +GLIPIZIDE5 MG PO; +HYDROCODON-ACE1 EA10 PO; +LIPITOR40 MG PO; +METFORMIN HCL1000 MG PO; +MOTRIN IB200 MG PO; +NIACIN500 M1 PO; +NORCO 5-325 TA1 EACH PO; +TRADJENTA5 MG PO; +TYLENOL325 MG PO; +VITAMIN D31000 UNIT PO
[2021-06-29] MEDS ORDERED: RELION NOV100 UNIT/2 SUB-Q (05:20)
--- NOTE | 2021-06-30 19:08 | EKG ---
[facility] [address] [facility] [place] [address] Signed Normal sinus rhythm Anterior infarct , age undetermined Abnormal ECG When compared with ECG of 10-JAN-2017 09:23, Anterior infarct is now present ST now depressed in Lateral leads T wave inversion now evident in Anterior leads Confirmed by ОЛЬГА CASTORENA MD ([id number]) on 06/30/2021 7:08:25 PM Electronically Signed By: ОЛЬГА CASTORENA MD 06/30/21 [id number] PATIENT NAME: OTF CORONA Electrocardiogram DATE OF : 64 PHYSICIAN: ОЛЬГА CASTORENA MD REPORT #: [id number] REPORT IS CONFIDENTIAL AND NOT TO BE RELEASED WITHOUT AUTHORIZATION
--- NOTE | 2021-06-30 19:09 | EKG ---
[facility] [address] [facility] [place] [address] Signed Normal sinus rhythm with sinus arrhythmia ST elevation, consider inferior injury or acute infarct ACUTE NM / STEMI Consider right ventricular involvement in acute inferior infarct Abnormal ECG When compared with ECG of 29-JUN-2021 05:22, (Unconfirmed) No significant change was found Confirmed by ОЛЬГА CASTORENA MD ([id number]) on 06/30/2021 7:09:14 PM Electronically Signed By: ОЛЬГА CASTORENA MD 06/30/21 1909 PATIENT NAME: OTF CORONA Electrocardiogram DATE OF : 64 PHYSICIAN: ОЛЬГА CASTORENA MD REPORT #: [id number] REPORT IS CONFIDENTIAL AND NOT TO BE RELEASED WITHOUT AUTHORIZATION
--- NOTE | 2021-06-30 19:09 | EKG ---
[facility] [address] [facility] [place] [address] Signed Normal sinus rhythm ST elevation, consider inferior injury or acute infarct Abnormal ECG When compared with ECG of 29-JUN-2021 04:56, (Unconfirmed) Criteria for Anterior infarct are no longer present Confirmed by ОЛЬГА CASTORENA MD ([id number]) on 06/30/2021 7:09:09 PM Electronically Signed By: ОЛЬГА CASTORENA MD 06/30/21 1909 PATIENT NAME: OTF CORONA Electrocardiogram DATE OF : 64 PHYSICIAN: ОЛЬГА CASTORENA MD REPORT #: [id number] REPORT IS CONFIDENTIAL AND NOT TO BE RELEASED WITHOUT AUTHORIZATION
== END 2021-06-29 06:21 | disposition short-term general hospital (02) ==
LOC: ED 04:51
DX: I21.19 ST elevation (STEMI) myocardial infarction involving other coronary artery of inferior wall (principal); E11.9 Type 2 diabetes mellitus without complications; Z86.73 Personal history of transient ischemic attack (TIA), and cerebral infarction without residual deficits; F17.200 Nicotine dependence, unspecified, uncomplicated; Z79.4 Long term (current) use of insulin; Z79.899 Other long term (current) drug therapy
CPT/HCPCS: 36415; 71045; 80053; 83735; 84484; 85025; 85379; 93005; 93010; 96374; 96375; 99285-25; J1170; J1644; J2405; U0003

== ENCOUNTER 2021-12-27 20:10 | Emergency (ER) | payer OTHER ==
[~2021-12-27] VITALS: Ht 175.3 cm; Wt 120.2 kg
[~2021-12-27 20:10] MED LIST changes: +RELION NOV100 UNIT/2 SUB-Q
[2021-12-27] MEDS ORDERED: METOPROLOL SUCC25 MG PO (20:47)
[2021-12-27] MEDS ORDERED: CLOPIDOGREL75 MG PO (20:47)
--- NOTE | 2021-12-28 20:37 | EKG ---
[facility] [address] [facility] [place] [address] Signed Sinus tachycardia with 1st degree AV block Inferior infarct , age undetermined Anterior infarct , age undetermined Abnormal ECG When compared with ECG of 29-JUN-2021 05:51, WI interval has increased Vent. rate has increased BY 51 BPM Anterior infarct is now present Inferior infarct is now present ST no longer depressed in Lateral leads Confirmed by CECILIA CABALLERO MD ([id number]) on 12/28/2021 8:37:02 PM Electronically Signed By: CECILIA CABALLERO MD 12/28/212036 PATIENT NAME: OTF CORONA Electrocardiogram DATE OF : 64 PHYSICIAN: CECILIA CABALLERO MD REPORT #: [id number] REPORT IS CONFIDENTIAL AND NOT TO BE RELEASED WITHOUT AUTHORIZATION
== END 2021-12-28 00:31 | disposition home or self-care (01) ==
LOC: ED 20:10
DX: R00.2 Palpitations (principal); E83.42 Hypomagnesemia; F17.200 Nicotine dependence, unspecified, uncomplicated; Z88.8 Allergy status to other drugs, medicaments and biological substances; Z79.4 Long term (current) use of insulin; Z79.899 Other long term (current) drug therapy
CPT/HCPCS: 36415; 80053; 81001; 83735; 84484; 85025; 93005; 93010; J7030

== ENCOUNTER 2023-02-07 00:13 | Emergency (ER) | payer OTHER ==
[~2023-02-07] VITALS: Ht 175.3 cm; Wt 116.0 kg
[~2023-02-07 00:13] MED LIST changes: +CLOPIDOGREL75 MG PO; +METOPROLOL SUCC25 MG PO
[2023-02-07] MEDS ORDERED: CLINDAMYCIN HC300 MG PO (00:36)
[2023-02-07] MEDS ORDERED: CHILDREN'S ASPI81 M1 PO (00:37)
[2023-02-07 01:05] VITALS: BP 121/71
== END 2023-02-07 01:05 | disposition home or self-care (01) ==
LOC: ED 00:13
DX: N61.1 Abscess of the breast and nipple (principal); I10 Essential (primary) hypertension; I25.2 Old myocardial infarction; E11.9 Type 2 diabetes mellitus without complications; F17.200 Nicotine dependence, unspecified, uncomplicated; Z88.8 Allergy status to other drugs, medicaments and biological substances; Z79.02 Long term (current) use of antithrombotics/antiplatelets; Z79.4 Long term (current) use of insulin; Z79.82 Long term (current) use of aspirin; Z79.899 Other long term (current) drug therapy
CPT/HCPCS: 10060; 87070; 87075; 87205; 99282-25; A9270